=== PATIENT | male | born 2000 | race Caucasian/White ===

== ENCOUNTER 2021-11-09 13:23 | Outpatient (CLI) | payer OTHER ==
--- NOTE | 2021-11-09 14:36 | MRI Report ---
PROCEDURE: Lumbar Spine W/O INDICATIONS: Low back pain TECHNIQUE: Noncontrast sagittal T1 spin echo and T2 fast echo, sagittal STIR, axial T1 and T2 fast spin echo thr ough the lumbar spine. In cases with scoliosis, additional coronal T2 fast spin echo may be performe d. COMPARISON: None. FINDINGS: Image quality: Excellent. Alignment and Curvature: Normal lumbar vertebral body height and alignment. Bone Marrow: Normal bone marrow signal intensity. No suspicious focal marrow signal abnormality or nelda ne marrow edema. Spinal Cord: Conus medullaris terminates at the normal level. Visualized cord demonstrates normal s ignal and size. Region Soft Tissues: Abnormal signal in the prevertebral and paraspinous soft tissues without mass, f luid collection, or edema. From T12-L1 through L5-S1: No degenerative changes, spinal canal stenosis, neural foraminal stenosis, or evidence of focal nerve root impingement. Normal disc height and hydration without disc herniatio n. IMPRESSION: Normal MRI of the lumbar spine. No spinal canal stenosis, neural foraminal stenosis, foc al nerve root impingement, or other significant degenerative changes identified. No imaging findings to explain low back pain. Reviewed by: Linden Padilla MD on 11/09/2021 2:35 PM PST Approved by: Linden Padilla MD on 11/09/2021 2:35 PM PST Station ID: [id number]
== END 2021-11-09 13:24 | disposition home or self-care (01) ==
LOC: DI 13:23
PROVIDERS: ATTEND Family Medicine
DX: M54.50 Low back pain, unspecified (principal)

== ENCOUNTER 2021-12-28 13:41 | Outpatient (CLI) | payer OTHER ==
[2021-12-28 14:38] VITALS: BP 141/87
--- NOTE | 2021-12-28 14:38 | SLEEP CARE CONSULTATION ---
Information from patient questionnaire entered by Fiordaliza Wells MA. I have reviewed and concur with the information entered by Fiordaliza Wells MA. This document represents the service I personally performed and the decisions made by me, Brea Benitez ARNP. History of Present Illness Service Date and Time: 12/28/2021 1341 Reason for Visit: New patient (ONSET 11/2019, NO PRIORS,) Chief Complaint: reports: Unrefreshed sleep, Snoring, Excessive daytime sleepine ss, Observed pauses in breathing, Fatigue, Frequent awakenings at night Date of Onset: 2-4 YEARS Usual bedtime: 10 PM; 11-1130 pm Time it takes to fall asleep: 30 MINUTES TO AN HOUR Snores at night: Yes Observed to quit breathing while asleep: Yes Sleeps alone due to snoring: No Number of times waking at night: 3-5 Reasons for waking at night: reports: Snoring, Other (unknown reasons; waking him up to change postitions; PTSD?). denies: Choking, Gasping for air Toss, Turn, or Twitch while sleeping: Yes Recalls having dreams: No Usually gets out of bed at: 5982-1220; weekends 0900 Feels refreshed in the morning: No Morning headache: Yes (2-3 times a week; last couple hours) Sleepy or fatigued during the day: Yes Ever fallen asleep while driving: No Takes day naps: Yes (1-2 times intentional; 5-6 unintentional per week) Dreams during day naps: No Prior sleep studies: No Additional HPI information: I had the pleasure of seeing HARPREET PRESCOTT today regarding the possibility of him having a sleep disorder. His current complaints are excessive daytime sleepiness, fatigue, frequent night awakenings, insomnia, observed pauses in breathing, snoring and unrefreshed sleep. He has had difficulty with sleeping in the last 2 years. He has used some medication to help his sleep and stay asleep more recently which does help him get sleep but he still does not feel rested. He never feels rested in the mornings. - Parasomnia Symptoms Ever been unable to move upon waking from sleep: No Walks in sleep: No Talks in sleep: Yes Ever acted out dreams in sleep: Yes (kicking and hitting) Ever felt weak in the knees when startled or emotional: No Bothered by creepy, crawly, restless sensations in legs: No Problems with memory or concentration: Yes (both; memory may be worse than concentration) Subjective Initial [place] Sleepiness Scale score: 15 (12/26) Past Medical History Past Medical History: reports: Anxiety, Depression, Mood disorder (PTSD), Other Social History The patient's occupation is a AM. Patient is Single and lives in . Have you smoked in the past 12 months: No Cigarettes per day (20/pack): 10 Years of smokin Quit date: 2018 Smoking Pack Years: 1.0 Alcohol use: Yes Alcohol amount and frequency: 1-2 WEEKLY Caffeine use: Yes Caffeine amount and frequency: 6-8 cups coffee 3-5 days a week Family History Family history of sleep disordered breathing: Yes Family Hx Sleep Apnea: Mother: Snoring, Father: Snoring, Sleep apnea - Treated Allergies and Home Medications Drug allergies reviewed: Yes (Penicillin, nickel) Home medication list reviewed: Yes Allergy and home medication list: Medications: Prazosin 15 mg Trazadone 100 mg Duloxetine 60 mg Vitamin D 2000 IU Review of Systems Weight gain over past 5 years: 10 Cardiovascular: reports: high blood pressure (in past, not taking meds) Gastrointestinal: reports: heartburn Psychiatric: reports: anxiety, depression Ear/Nose/Throat: reports: wisdom teeth removed (had bottom wisdom teeth removed). denies: tonsillectomy Endocrine: reports: sluggishness Musculoskeletal: reports: joint pain, neck pain, back pain Physical Exam Vital signs obtained and entered by: Ariel WELLS CMA [facility] Blood Pressure: 141/87 (LEFT, PULSE 83, RESP 16, ) Cuff size: wrist Heart Rate: 71 O2 Saturation: 97 (CLOTH) Height: 5 ft 8 in Weight: 158 lb 11.725 oz Body Mass Index: 24.1 BMI Classification: Healthy weight Neck circumference: 14 (INCHES) Mouth and throat: narrow oropharynx Soft palate: normal Hard palate: normal Uvula: normal Uvula visualization: 100% Mallampati Class I Tongue: enlarged in size with teeth garcia on lateral edges Tonsils: small Neck: normal w/o lymphadenopathy or thyromegaly Heart: regular rate and rhythm Lungs: clear bilaterally Impression and Plan 1. Suspected Obstructive Sleep Apnea-Hypopnea Syndrome, as suggested by a history of loud and irregular snoring, observed cessation of breath while asleep, morning headache, frequent awakening during the night, unrefreshed sleep, cognitive impairment, and excessive daytime sleepiness. Narrow oropharynx and obesity are common predisposing factors for obstructive sleep apnea-hypopnea syndrome. I recommend proceeding to polysomnography to confirm the diagnosis and to assess severity. If the patient has significant sleep disordered breathing, a manual CPAP titration study will also be performed to find the optimal treatment pressure. I informed the patient of what the sleep studies involve and after some discussion, obtained agreement to proceed. The pathophysiology of obstructive sleep apnea-hypopnea syndrome was discussed with the patient and health risks of cardiovascular and cerebrovascular disease if not treated. Risks of drowsy driving discussed in detail and patient advised to avoid long distance driving and to machine puller and laster at the first sign of drowsiness. Patient agreed to plan. * Schedule polysomnography +- manual CPAP titration study and return in 1-2 weeks after the study to discuss results. * Avoid long distance driving or driving when feeling sleepy. * Avoid alcohol, sedative and muscle relaxant around bedtime. * Attempt to lose weight. * Review instructions provided by trained office staff on how to prepare for the sleep study. * Return for follow-up after sleep study completed. Counseling Topics: Weight control Visit Type: In Office Time Spent with Patient (minutes): 30 Provider Statement: I spent 100% of the Face to Face Visit with the patient with greater than 50% spent counseling the patient and coordination of care.
== END 2021-12-28 13:42 | disposition home or self-care (01) ==
LOC: SC 13:41
PROVIDERS: ATTEND Nurse Practitioner Family
DX: R06.83 Snoring (principal); G47.8 Other sleep disorders; R06.81 Apnea, not elsewhere classified; R51.9 Headache, unspecified; G47.10 Hypersomnia, unspecified; R53.83 Other fatigue; F32.A Depression, unspecified; Z87.891 Personal history of nicotine dependence
CPT/HCPCS: 99203; 99212

== ENCOUNTER 2022-01-11 12:21 | Outpatient (CLI) | payer OTHER | END 2022-01-11 12:22 | disposition home or self-care (01) | LOC: SC 12:21 | PROVIDERS: ATTEND Nurse Practitioner Family | DX: R06.83 Snoring (principal); R06.81 Apnea, not elsewhere classified; G47.8 Other sleep disorders; F32.A Depression, unspecified; R51.9 Headache, unspecified; R53.83 Other fatigue; G47.10 Hypersomnia, unspecified; R09.02 Hypoxemia; R00.0 Tachycardia, unspecified | CPT/HCPCS: 95806 ==

== ENCOUNTER 2022-02-06 14:05 | Outpatient (CLI) | payer OTHER ==
[2022-02-06 14:39] VITALS: BP 132/78
--- NOTE | 2022-02-06 14:39 | SLEEP CARE CONSULTATION ---
Information from patient questionnaire entered by Nicki Villa. I have reviewed and concur with the information entered by Nicki Villa. This document represents the service I personally performed and the decisions made by , Brea Benitez ARNP. History of Present Illness Service Date and Time: 02/06/2022 1405 Initial [place] Sleepiness Scale score: 15 (12/26) Current [place] Sleepiness Scale score: 19 Additional HPI information: HARPREET PRESCOTT returns for follow up and results of the recently performed home sleep study. The patient was informed of the following findings: No significant sleep disordered breathing with an average AHI of 4.6 with a yas oxygen saturation of 88%. His supine AHI was elevated at 5.4 and had tachycardia with a maximum heart rate of 121. I explained the pathophysiology behind obstructive sleep apnea. Patient does not have sleep apnea and was advised how weight gain could increase the risk of developing sleep apnea in the future. Patient does not have significant sleep disordered breathing but has elevated AHI in supine position so advised positional therapy. Patient is to avoid sleeping on his back. Patient counseled not drink alcohol less than 4 hours before bedtime as it can increase snoring and apnea. Patient was cautioned about risks of drowsy driving until sleepiness symptoms resolve. Sleep Study - Results Type of Sleep Study: Home sleep study (FOLLOW UP HST 01/11/22) Prior sleep studies: No Polysomnography/Home Sleep Study results: Physician Impression: The quality of the study is good. The length of the study is adequate (> 240 minutes). Please also see the tabulated and graphic data. 1. No significant sleep disordered breathing, with an AHI of 4.6/hr and yas SaO2 of 88%. During the study, the patient had 39 apneas (39 obstructive, 0 central, 0 mixed) and 4 hypopneas. The longest episode lasted 44.0 seconds. The few respiratory events occurred almost exclusively during supine sleep (supine AHI was 5.4 and non-supine, 2.75). 2. Hypoxemia (ICD-10 R09.02), minimal, with the lowest oxygen saturation of 88 % and 0.1 minutes with SaO2 under 90%. Baseline oxygen saturation was normal (Average oxygen saturation was 95%). 3. Tachycardia, with maximum recorded heart rate of 121 beats per minute. Allergies and Home Medications Known drug allergies: Yes (PENICLLIN, NICKEL) Drug allergies reviewed: Yes Home medication list reviewed: Yes (no changes) Review of Systems Review of systems same as previous: Yes (no changes) Physical Exam Vital signs obtained and entered by: Marizol VILLA MA Blood Pressure: 132/78 (MANUAL ) Cuff size: regular Heart Rate: 75 O2 Saturation: 98 Height: 5 ft 8 in Weight: 155 lb Body Mass Index: 23.6 BMI Classification: Healthy weight Impression and Plan 1. Suspected Obstructive Sleep Apnea-Hypopnea Syndrome, as suggested by a history of loud and irregular snoring, observed cessation of breath while asleep, frequent awakening during the night, unrefreshed sleep, and excessive daytime sleepiness. Patient completed a HST which showed an elevated supine AHI and some tachycardia. I would like to have him do an in lab PSG for further evaluation. He continues to have an [place] score of 19/24 today. I recommend proceeding to polysomnography to confirm the diagnosis and to assess severity. If the patient has significant sleep disordered breathing, a manual CPAP titration study will also be performed to find the optimal treatment pressure. I informed the patient of what the sleep studies involve and after some discussion, obtained agreement to proceed. The pathophysiology of obstructive sleep apnea-hypopnea syndrome was discussed with the patient and health risks of cardiovascular and cerebrovascular disease if not treated. Risks of drowsy driving discussed in detail and patient advised to avoid long distance driving and to machine puller and laster at the first sign of drowsiness. Patient agreed to plan. 2. Tachycardia, unspecified. Patient had a maximum recorded heart rate of 121 beats per minute during his sleep study. The elevated heart rate may be related to the apneas he did have but we cannot say for certain. Patient was advised to follow up with his primary doctor for further evaluation as needed. I am also ordering a polysomnography in the sleep lab for further evaluation of his symptoms. * Schedule polysomnography * Avoid long distance driving or driving when feeling sleepy. * Avoid alcohol, sedative and muscle relaxant around bedtime. * Maintain a healthy weight. * Review instructions provided by trained office staff on how to prepare for the sleep study. * Return for follow-up after sleep study completed. Visit Type: In Office Time Spent with Patient (minutes): 20 Provider Statement: I spent 100% of the Face to Face Visit with the patient with greater than 50% spent counseling the patient and coordination of care.
== END 2022-02-06 14:06 | disposition home or self-care (01) ==
LOC: SC 14:05
PROVIDERS: ATTEND Nurse Practitioner Family
DX: R06.83 Snoring (principal); R06.81 Apnea, not elsewhere classified; G47.8 Other sleep disorders; G47.10 Hypersomnia, unspecified
CPT/HCPCS: 99212; 99213

== ENCOUNTER 2022-02-18 20:30 | Outpatient (CLI) | payer OTHER | END 2022-02-18 20:31 | disposition home or self-care (01) | LOC: SC 20:30 | PROVIDERS: ATTEND Nurse Practitioner Family | DX: R06.83 Snoring (principal); G47.8 Other sleep disorders; G47.10 Hypersomnia, unspecified; R06.81 Apnea, not elsewhere classified | CPT/HCPCS: 95810 ==

== ENCOUNTER 2022-07-09 07:13 | Outpatient (CLI) | payer OTHER ==
--- NOTE | 2022-07-09 14:28 | MRI Report ---
PROCEDURE: Shoulder RT W/O INDICATIONS: PAIN IN RIGHT SHOULDER TECHNIQUE: Noncontrast oblique coronal T2 fast spin echo with fat saturation, oblique sagittal T1 spin echo and T2 fast spin echo with fat saturation, axial T1 spin echo and T2 fast spin echo with fat saturation t hrough the shoulder. COMPARISON: None. FINDINGS: Image quality: Excellent. Rotator cuff: There is mild supraspinatus, infraspinatus and subscapularis tendinosis without discret e tendon tear. No rotator cuff muscle atrophy on sagittal images. Bones and bursae: No bone marrow contusions or fractures. Mild acromioclavicular joint degeneration. The acromion demonstrates conventional anatomy, without an os acromiale. No pathologic subacromial /subdeltoid bursal fluid is present. Capsule and soft tissues: In the absence of intra-articular contrast, the labrum and glenohumeral li gaments appear intact. There is a 0.5 x 0.8 cm cyst adjacent to the anterior inferior labrum. The lo ng head of the biceps tendon demonstrates normal location and morphology. The rotator interval appea rs normal, without fibrosis. The coracohumeral ligament is normal in thickness. IMPRESSION: 1. Mild supraspinous, infraspinatus and subscapularis tendinosis. No discrete tendon tear. 2. Mild acromioclavicular joint degeneration. 3. A 0.5 x 0.8 cm paravertebral cyst adjacent to the anterior inferior labrum. Reviewed by: Rajeev Rosado MD on 07/09/2022 2:26 PM PDT Approved by: Rajeev Rosado MD on 07/09/2022 2:26 PM PDT Station ID: [id number]
== END 2022-07-09 07:14 | disposition home or self-care (01) ==
LOC: DI 07:13
PROVIDERS: ATTEND Family Medicine
DX: M19.011 Primary osteoarthritis, right shoulder (principal)